=== PATIENT | male | born 1990 | race Two or more races ===

== ENCOUNTER 2018-06-05 14:41 | Emergency (ER) | payer OTHER ==
[~2018-06-05] VITALS: Ht 167.6 cm; Wt 90.7 kg
[2018-06-05 16:21] VITALS: BP 139/87
== END 2018-06-05 18:23 | disposition home or self-care (01) ==
LOC: ER 14:41
DX: S20.212A Contusion of left front wall of thorax, initial encounter (principal); S50.02XA Contusion of left elbow, initial encounter; S80.12XA Contusion of left lower leg, initial encounter; S09.8XXA Other specified injuries of head, initial encounter; Y04.2XXA Assault by strike against or bumped into by another person, initial encounter; Y93.89 Activity, other specified; Y92.148 Other place in prison as the place of occurrence of the external cause; Y99.8 Other external cause status
CPT/HCPCS: 70450; 71046; 73080; 73590